=== PATIENT | male | born 1975 | race Caucasian/White ===

== ENCOUNTER 2017-08-09 05:46 | Emergency (ER) | payer OTHER ==
[~2017-08-09] VITALS: Ht 175.2 cm; Wt 98.0 kg
[~2017-08-09 05:46] MED LIST: CIPRO500 MG PO; FLAGYL500 MG PO; MOTRIN800 MG PO; NORCO 10-325 T1 EACH PO
[2017-08-09 06:33] LABS: BILIRUBIN NEGATIVE (NEGATIVE); BLOOD TRACE-INTACT (NEGATIVE); CLARITY CLEAR (CLEAR); COLOR YELLOW (YELLOW); GLUCOSE NEGATIVE (NEGATIVE); KETONE NEGATIVE (NEGATIVE); LEUKO ESTERASE NEGATIVE (NEGATIVE); NITRITE NEGATIVE (NEGATIVE); PH 5.5 (5.0-9.0); SPECIFIC GRAVITY 1.015 (1.005-1.030); UROBILINOGEN 0.2 E.U./dl (0.2-1.0)
[2017-08-09 06:47] LABS: BACTERIA 2+; EPITHELIAL CELLS 0-2
[2017-08-09 06:48] LABS: CALCIUM OXALATE CRYSTALS TRACE; FINE GRANULAR CAST 0-2
[2017-08-09 07:26] LABS: BASO % 0.3 % (0.0-1.0); EOS # 0.2 10*3/uL (0.0-0.4); EOS % 2.1 % (1.0-4.0); HEMATOCRIT 42.2 % (42.0-52.0); HEMOGLOBIN 14.9 g/dl (14.0-18.0); LYMPH % 21.8 % (27.0-41.0); MEAN CELL VOLUME 87.6 fl (80.0-94.0); MEAN CORPUSCULAR HGB 30.9 pg (27.0-31.0); MEAN CORPUSCULAR HGB CONC 35.3 g/dl (33.0-37.0); MEAN PLATELET VOLUME 9.9 fl (9.6-12.3); MONO # 0.8 10*3/uL (0.1-1.0); NEUT # 6.1 10*3/uL (2.3-7.9); NEUT % 66.5 % (47.0-73.0); PLATELET COUNT AUTOMATED 230 10*3/uL (130-400); RED BLOOD COUNT 4.82 10*6/uL (4.50-5.90); RED CELL DISTRI WIDTH 12.5 % (0-14.5); WHITE BLOOD COUNT 9.1 10*3/uL (4.8-10.8)
[2017-08-09 07:39] LABS: ALBUMIN 3.5 gm/dl (3.1-4.5); ALKALINE PHOSPHATASE 77 U/L (45-117); BUN 17 mg/dl (7-24); CHLORIDE 105 mmol/L (98-107); CREATININE 1.12 mg/dL (0.70-1.30); POTASSIUM 4.6 mmol/L (3.5-5.1); SGOT/AST 20 IU/L (3-35); SGPT/ALT 22 U/L (12-78); SODIUM 140 mmol/L (136-145)
[2017-08-09] MEDS ORDERED: AUGMENTIN 875875 MG PO (09:50)
[2017-08-09] MEDS ORDERED: FLAGYL250 MG PO (09:50)
[2017-08-09] MEDS ORDERED: NORCO 5-325 TA1 EACH PO (10:26)
== END 2017-08-09 10:17 | disposition home or self-care (01) ==
LOC: ED 05:46
PROVIDERS: Emergency Medicine
DX: N39.0 Urinary tract infection, site not specified (principal); Z88.4 Allergy status to anesthetic agent

== ENCOUNTER → 2018-03-12 | Outpatient (CLI) | payer OTHER ==
[~2018-03-12] MED LIST changes: +AUGMENTIN 875875 MG PO; +FLAGYL250 MG PO; +NORCO 5-325 TA1 EACH PO
[2018-03-12 08:27] LABS: HEMATOCRIT 46.2 % (42.0-52.0); HEMOGLOBIN 16.2 g/dl (14.0-18.0); MEAN CELL VOLUME 85.6 fl (80.0-94.0); MEAN CORPUSCULAR HGB CONC 35.1 g/dl (33.0-37.0); MEAN PLATELET VOLUME 10.3 fl (9.6-12.3); RED BLOOD COUNT 5.4 10*6/uL (4.50-5.90); RED CELL DISTRI WIDTH 12.5 % (0-14.5); WHITE BLOOD COUNT 6.8 10*3/uL (4.8-10.8)
[2018-03-12 09:09] LABS: ALKALINE PHOSPHATASE 70 U/L (45-117); BUN 20 mg/dl (7-24); CHLORIDE 106 mmol/L (98-107); CHOLESTEROL 150 mg/dL (<200); CREATININE 1.13 mg/dL (0.70-1.30); HDL CHOLESTEROL 31 mg/dl (40-60); LDL CHOLESTEROL 87 mg/dL (9-159); POTASSIUM 3.9 mmol/L (3.5-5.1); SGOT/AST 20 IU/L (3-35); SGPT/ALT 22 U/L (12-78); SODIUM 140 mmol/L (136-145); TOTAL PROTEIN 7.4 gm/dL (6.4-8.2); TRIGLYCERIDES 158 mg/dl (<150); VLDL CHOLESTEROL 32 mg/dL (6-40)
== END | disposition home or self-care (01) ==
LOC: LAB 07:36
PROVIDERS: Family Medicine
DX: E78.00 Pure hypercholesterolemia, unspecified (principal); R05 Cough; R06.02 Shortness of breath; R06.2 Wheezing; H91.90 Unspecified hearing loss, unspecified ear

== ENCOUNTER → 2018-04-08 | Outpatient (CLI) | payer OTHER | END | disposition home or self-care (01) | LOC: LAB 15:37 | DX: E55.9 Vitamin D deficiency, unspecified (principal); R53.83 Other fatigue ==

== ENCOUNTER 2018-04-14 15:54 | Emergency (ER) | payer OTHER ==
[~2018-04-14] VITALS: Ht 175.2 cm; Wt 88.5 kg
[2018-04-14 16:31] LABS: BASO % 0.2 % (0.0-1.0); EOS # 0.2 10*3/uL (0.0-0.4); EOS % 1.4 % (1.0-4.0); LYMPH # 2.1 10*3/uL (1.3-4.4); LYMPH % 20.1 % (27.0-41.0); MEAN CELL VOLUME 86.5 fl (80.0-94.0); MEAN CORPUSCULAR HGB 29.5 pg (27.0-31.0); MEAN CORPUSCULAR HGB CONC 34.1 g/dl (33.0-37.0); MEAN PLATELET VOLUME 9.7 fl (9.6-12.3); MONO % 9.2 % (3.0-9.0); NEUT # 7.3 10*3/uL (2.3-7.9); NEUT % 68.9 % (47.0-73.0); PLATELET COUNT AUTOMATED 254 10*3/uL (130-400); RED BLOOD COUNT 4.74 10*6/uL (4.50-5.90); RED CELL DISTRI WIDTH 12.6 % (0-14.5); WHITE BLOOD COUNT 10.7 10*3/uL (4.8-10.8)
[2018-04-14 16:45] LABS: BUN 24 mg/dl (7-24); CHLORIDE 111 mmol/L (98-107); CREATININE 1.08 mg/dL (0.70-1.30); POTASSIUM 3.4 mmol/L (3.5-5.1); SODIUM 144 mmol/L (136-145)
== END 2018-04-14 18:03 | disposition home or self-care (01) ==
LOC: ED 15:54
PROVIDERS: Emergency Medicine
DX: E87.6 Hypokalemia (principal); R00.8 Other abnormalities of heart beat; Z98.890 Other specified postprocedural states; Z88.4 Allergy status to anesthetic agent

== ENCOUNTER 2018-06-05 18:49 | Emergency (ER) | payer OTHER ==
[~2018-06-05] VITALS: Ht 177.8 cm; Wt 74.8 kg
[2018-06-05 19:21] LABS: BASO % 0.2 % (0.0-1.0); EOS # 0.1 10*3/uL (0.0-0.4); EOS % 0.7 % (1.0-4.0); HEMATOCRIT 41.6 % (42.0-52.0); HEMOGLOBIN 14.5 g/dl (14.0-18.0); LYMPH # 1.9 10*3/uL (1.3-4.4); LYMPH % 13.8 % (27.0-41.0); MEAN CELL VOLUME 87.2 fl (80.0-94.0); MEAN CORPUSCULAR HGB 30.4 pg (27.0-31.0); MEAN CORPUSCULAR HGB CONC 34.9 g/dl (33.0-37.0); MEAN PLATELET VOLUME 10.2 fl (9.6-12.3); MONO # 1.4 10*3/uL (0.1-1.0); MONO % 10.1 % (3.0-9.0); NEUT # 10.1 10*3/uL (2.3-7.9); NEUT % 74.8 % (47.0-73.0); PLATELET COUNT AUTOMATED 246 10*3/uL (130-400); RED BLOOD COUNT 4.77 10*6/uL (4.50-5.90); RED CELL DISTRI WIDTH 12.4 % (0-14.5); WHITE BLOOD COUNT 13.5 10*3/uL (4.8-10.8)
[2018-06-05 19:26] LABS: BILIRUBIN NEGATIVE (NEGATIVE); BLOOD 1+ (NEGATIVE); CLARITY CLEAR (CLEAR); COLOR YELLOW (YELLOW); GLUCOSE NEGATIVE (NEGATIVE); KETONE NEGATIVE (NEGATIVE); LEUKO ESTERASE NEGATIVE (NEGATIVE); NITRITE NEGATIVE (NEGATIVE); SPECIFIC GRAVITY 1.025 (1.005-1.030); UROBILINOGEN 0.2 E.U./dl (0.2-1.0)
[2018-06-05 19:37] LABS: ALBUMIN 3.5 gm/dl (3.1-4.5); ALKALINE PHOSPHATASE 66 U/L (45-117); BUN 14 mg/dl (7-24); CHLORIDE 106 mmol/L (98-107); CREATININE 0.88 mg/dL (0.70-1.30); POTASSIUM 3.7 mmol/L (3.5-5.1); SGOT/AST 13 IU/L (3-35); SGPT/ALT 15 U/L (12-78); SODIUM 139 mmol/L (136-145); TOTAL PROTEIN 7.1 gm/dL (6.4-8.2)
[2018-06-05 19:41] LABS: WBC 0-2 wbc/hpf (0-5)
[2018-06-05] MEDS ORDERED: KETOROLAC10 MG PO (20:56)
[2018-06-06] MEDS ORDERED: KETOROLAC10 MG PO (11:05)
[2018-06-06] MEDS ORDERED: FLAGYL500 MG PO (13:17)
[2018-06-06] MEDS ORDERED: SEPTDS PO (13:17)
[2018-06-06] MEDS ORDERED: Zofran4 MG PO (13:17)
[2018-06-06] MEDS ORDERED: NORCO 10-325 T1 EACH PO (13:18)
== END 2018-06-05 23:32 | disposition home or self-care (01) ==
LOC: ED 18:49
PROVIDERS: Student in an Organized Health Care Education/Training Program
DX: N20.1 Calculus of ureter (principal); Z98.890 Other specified postprocedural states; Z87.442 Personal history of urinary calculi

== ENCOUNTER 2018-06-06 10:39 | Emergency (ER) | payer OTHER ==
[~2018-06-06] VITALS: Ht 180.3 cm; Wt 93.0 kg
[~2018-06-06 10:39] MED LIST changes: +KETOROLAC10 MG PO
[2018-06-06] MEDS ORDERED: KETOROLAC10 MG PO (11:05)
[2018-06-06 11:32] LABS: BASO % 0.3 % (0.0-1.0); EOS # 0.1 10*3/uL (0.0-0.4); EOS % 0.6 % (1.0-4.0); HEMATOCRIT 43.9 % (42.0-52.0); HEMOGLOBIN 14.9 g/dl (14.0-18.0); LYMPH # 1.5 10*3/uL (1.3-4.4); LYMPH % 9.4 % (27.0-41.0); MEAN CELL VOLUME 88.7 fl (80.0-94.0); MEAN CORPUSCULAR HGB 30.1 pg (27.0-31.0); MEAN CORPUSCULAR HGB CONC 33.9 g/dl (33.0-37.0); MEAN PLATELET VOLUME 10.6 fl (9.6-12.3); MONO # 1.4 10*3/uL (0.1-1.0); NEUT # 12.8 10*3/uL (2.3-7.9); NEUT % 80.3 % (47.0-73.0); PLATELET COUNT AUTOMATED 254 10*3/uL (130-400); RED BLOOD COUNT 4.95 10*6/uL (4.50-5.90); RED CELL DISTRI WIDTH 12.3 % (0-14.5); WHITE BLOOD COUNT 15.9 10*3/uL (4.8-10.8)
[2018-06-06 11:33] LABS: BILIRUBIN 1+ (NEGATIVE); BLOOD 3+ (NEGATIVE); CLARITY SL CLOUDY (CLEAR); COLOR YELLOW (YELLOW); GLUCOSE NEGATIVE (NEGATIVE); KETONE TRACE (NEGATIVE); LEUKO ESTERASE NEGATIVE (NEGATIVE); NITRITE NEGATIVE (NEGATIVE); PH 5.5 (5.0-9.0); SPECIFIC GRAVITY >= 1.030 (1.005-1.030)
[2018-06-06 11:44] LABS: MUCOUS 1+; RBC 16-20 rbc/hpf (0-2)
[2018-06-06 11:45] LABS: ALBUMIN 3.8 gm/dl (3.1-4.5); BUN 16 mg/dl (7-24); CHLORIDE 105 mmol/L (98-107); CREATININE 1.18 mg/dL (0.70-1.30); POTASSIUM 4.3 mmol/L (3.5-5.1); SGOT/AST 21 IU/L (3-35); SGPT/ALT 18 U/L (12-78); SODIUM 139 mmol/L (136-145); TOTAL PROTEIN 7.7 gm/dL (6.4-8.2)
[2018-06-06 11:48] LABS: ALKALINE PHOSPHATASE 71 U/L (45-117)
[2018-06-06] MEDS ORDERED: SEPTDS PO (13:17)
[2018-06-06] MEDS ORDERED: FLAGYL500 MG PO (13:17)
[2018-06-06] MEDS ORDERED: Zofran4 MG PO (13:17)
[2018-06-06] MEDS ORDERED: NORCO 10-325 T1 EACH PO (13:18)
== END 2018-06-06 13:44 | disposition home or self-care (01) ==
LOC: ED 10:39
PROVIDERS: Emergency Medicine
DX: K57.32 Diverticulitis of large intestine without perforation or abscess without bleeding (principal); N20.1 Calculus of ureter; Z98.890 Other specified postprocedural states; Z79.899 Other long term (current) drug therapy